=== PATIENT | male | born 1985 | race Caucasian/White ===

== ENCOUNTER 2021-10-08 21:33 | Emergency (ER) | payer BC ==
[2021-10-08] MEDS: cloNIDine 0.1 MG Tab PO ONE ×2 (21:56→23:43)
--- NOTE | 2021-10-08 22:23 | EDM.PDOC ---
ED HPI GENERAL MEDICAL PROBLEM - General Chief Complaint: General Stated Complaint: Nosebleed Time Seen by Provider: 10/08/21 21:40 Source of Information: Reports: Patient History Limitations: Reports: No Limitations - History of Present Illness INITIAL COMMENTS - FREE TEXT/NARRATIVE: 36 YO WM WITH PMH OF HYPERTENSION WHO PRESENTS TO ER WITH COMPLAINTS OF LEFT SIDED INTERMITTENT EPISTASIS WHICH BEGAN YESTERDAY. PT REPORTS IT WAS A MINOR BLEEDING BUT TONIGHT IT BECAME MORE SEVERE PROMPTING ER EVALUATION. UPON ARRIVAL, PATIENTS INITIAL BP- 189/134. PT DENIES HEADACHE OR CHEST PAIN AT THIS TIME. EPISTASIS WAS CONTROLLED AT TIME OF INTERVIEW. PT REPORTS HISTORY OF IGA NEPHROPATHY BUT MOST RECENT LAB WORK (WITHIN THE LAST MONTH) WAS WITHIN NORMAL RANGE. PT REPORTS HE HASN'T BEEN COMPLIANT WITH HIS BLOOD PRESSURE MEDICATION BUT TONIGHT HE TOOK HIS LISINOPRIL DUE TO ELEVATED BLOOD PRESSURE. Onset Date: 10/07/21 Duration: Day(s): (2) Location: Reports: Face (EPISTASIS ) Severity: Mild Improves with: Reports: None Worsens with: Reports: None Associated Symptoms: Reports: No Other Symptoms. Denies: Chest Pain, Headaches, Syncope, Weakness - Related Data Allergies Allergy/AdvReac Type Severity Reaction Status Date / Time No Known Drug Allergies Allergy Other Verified 10/08/21 21:36 Home Meds: Home Meds Lisinopril 10 mg PO DAILY 09/10/14 [History] Social & Family History - Living Situation & Occupation Living situation: Reports: Occupation: Employed ED ROS GENERAL - Review of Systems Review Of Systems: See Below Constitutional: Reports: No Symptoms HEENT: Reports: Nosebleed Respiratory: Reports: No Symptoms Cardiovascular: Reports: No Symptoms, Blood Pressure Problem. Denies: Chest Pain, Lightheadedness, Palpitations Endocrine: Reports: No Symptoms GI/Abdominal: Reports: No Symptoms : Reports: No Symptoms Musculoskeletal: Reports: No Symptoms Skin: Reports: No Symptoms Neurological: Reports: No Symptoms. Denies: Dizziness, Headache, Numbness, Paresthesia Psychiatric: Reports: No Symptoms Hematologic/Lymphatic: Reports: No Symptoms Immunologic: Reports: No Symptoms ED EXAM, GENERAL - Physical Exam Exam: See Below Exam Limited By: No Limitations General Appearance: Alert, WD/WN, No Apparent Distress Nose: Other (DRIED BLOOD IN LEFT NARE WITHOUT ACTIVE BLEEDING) Throat/Mouth: Normal Inspection, Normal Lips, Normal Teeth, Normal Gums, Normal Oropharynx, Normal Voice, No Airway Compromise Head: Atraumatic, Normocephalic Neck: Normal Inspection, Supple, Non-Tender, Full Range of Motion Respiratory/Chest: No Respiratory Distress, Lungs Clear, Normal Breath Sounds, No Accessory Muscle Use, Chest Non-Tender Cardiovascular: Normal Peripheral Pulses, Regular Rate, Rhythm, No Edema, No Gallop, No JVD, No Murmur, No Rub GI/Abdominal: Normal Bowel Sounds, Soft, Non-Tender, No Organomegaly, No Distention, No Abnormal Bruit, No Mass Back Exam: Normal Inspection, Full Range of Motion, NT Extremities: Normal Inspection, Normal Range of Motion, Non-Tender, Normal Capillary Refill, No Pedal Edema Neurological: Alert, Oriented, CN II-XII Intact, Normal Cognition, Normal Gait, No Motor/Sensory Deficits Psychiatric: Normal Affect, Normal Mood Skin Exam: Warm, Dry, Intact, Normal Color, No Rash Lymphatic: No Adenopathy Course - Vital Signs Last Recorded V/S: Last Vital Signs Temp 97.6 F 10/08/21 21:34 Pulse 84 10/08/21 21:34 Resp 20 10/08/21 21:34 BP 170/112 H 10/08/21 22:15 Pulse Ox 97 10/08/21 21:34 - Orders/Labs/Meds Orders: Active Orders 24 hr Category Date Time Status EKG Documentation Completion [RC] ASDIRECTED Care 10/08/21 22:30 Active EKG 12 Lead [EK] Stat Ther 10/08/21 22:29 Ordered Labs: Laboratory Tests 10/08/21 10/08/21 Range/Units 22:45 22:45 WBC 8.43 (5.00-10.00) 10^3/uL RBC 4.45 L (4.50-6.00) 10^6/uL Hgb 13.2 (13.0-17.0) g/dL Hct 39.6 L (40.0-52.0) % MCV 89.0 (82.0-92.0) fL MCH 29.7 (27.0-31.0) pg MCHC 33.3 (32.0-36.0) g/dL RDW 12.5 (11.5-14.5) % Plt Count 292 (150-400) 10^3/uL MPV 9.5 (7.4-10.4) fL Immature Gran % (Auto) 0.1 (0.0-5.0) % Neut % (Auto) 63.4 (50.0-70.0) % Lymph % (Auto) 22.5 (20.0-40.0) % [place] % (Auto) 10.9 H (2.0-8.0) % Eos % (Auto) 2.4 (1.0-3.0) % Baso % (Auto) 0.7 (0.0-1.0) % Neut # (Auto) 5.34 (2.50-7.00) 10^3/uL Lymph # (Auto) 1.90 (1.00-4.00) 10^3/uL [place] # (Auto) 0.92 H (0.10-0.80) 10^3/uL Eos # (Auto) 0.20 (0.10-0.30) 10^3/uL Baso # (Auto) 0.06 (0.00-0.10) 10^3/uL Immature Gran # (Auto) 0.01 (0.00-0.50) 10^3/uL Sodium 145 (136-145) mmol/L Potassium 3.3 L (3.5-5.1) mmol/L Chloride 107 (98-107) mmol/L Carbon Dioxide 28.9 (21.0-32.0) mmol/L Anion Gap 12.4 (5-15) mmol/L BUN 16 (7-18) mg/dL Creatinine 1.13 (0.51-1.17) mg/dL Est Cr Clr Drug Dosing 93.31 mL/min Estimated GFR (MDRD) > 60 mL/min Glucose 91 (70-140) mg/dL Calcium 8.3 L (8.7-10.3) mg/dL Meds: Medications Discontinued Medications Generic Name Dose Route Start Last Admin Trade Name Cecilia PRN Reason Stop Dose Admin Clonidine HCl 0.1 mg 10/08/21 21:53 10/08/21 21:56 Clonidine 0.1 Mg Tab PO 10/08/21 21:54 0.1 mg ONETIME ONE Administration Clonidine HCl Confirm 10/08/21 21:53 10/08/21 22:37 Clonidine 0.1 Mg Tab Administered 10/08/21 21:54 Not Given Dose 0.1 mg .ROUTE .STK-MED ONE - Re-Assessments/Exams Free Text/Narrative Re-Assessment/Exam: 10/08/21 23:28 EPISTASIS CONTROLLED WITH ICE PACK AND BETTER CONTROL OF HYPERTENSION 10/08/21 23:29 CURRENT BP- 156/108- PT DENIES CHEST PAIN/HEADACHE. INSTRUCTED PT TO TAKE BLOOD PRESSURE 2X/DAY Departure - Departure Time of Disposition: 23:31 Disposition: Home, Self-Care 01 Condition: Fair Clinical Impression: IgA nephropathy, Epistaxis Hypertension Qualifiers: Hypertension type: unspecified Qualified Code(s): I10 - Essential (primary) hypertension - Discharge Information Instructions: Nosebleed, Adult, Hypertension, Adult, [id number] Referrals: Arleth Herron MD [Primary Care Provider] - Forms: ED Department Discharge Additional Instructions: 1. DISCHARGE HOME 2. FOLLOW UP WITH DR PAK IN AM FOR FURTHER EVALUATION OF BLOOD PRESSURE 3. RETURN TO ER FOR CHEST PAIN, SHORTNESS OF BREATH, SEVERE HEADACHE OR UNCONTROLLED NOSEBLEED 4. CLONIDINE 0.1MG 2X/DAY 5. CHECK BLOOD PRESSURE DAILY AND/OR IF FEELING LIGHTHEADED Sepsis Event Note (ED) - Evaluation Sepsis Screening Result: No Definite Risk - Focused Exam Vital Signs: Vital Signs Temp Pulse Resp BP BP Pulse Ox 10/08/21 22:15 170/112 H 10/08/21 22:06 169/107 H 10/08/21 21:56 193/127 H 10/08/21 21:34 97.6 F 84 20 189/134 H 97 - My Orders Last 24 Hours: My Active Orders 10/08/21 22:29 EKG 12 Lead [EK] Stat 10/08/21 22:30 EKG Documentation Completion [RC] ASDIRECTED - Assessment/Plan Last 24 Hours: My Active Orders 10/08/21 22:29 EKG 12 Lead [EK] Stat 10/08/21 22:30 EKG Documentation Completion [RC] ASDIRECTED Assessment:: 1. ACCELERATED HYPERTENSION 2. EPISTASIS- CONTROLLED Plan: 1. DISCHARGE HOME 2. FOLLOW UP WITH DR PAK IN AM FOR FURTHER EVALUATION OF BLOOD PRESSURE 3. RETURN TO ER FOR CHEST PAIN, SHORTNESS OF BREATH, SEVERE HEADACHE OR UNCONTROLLED NOSEBLEED 4. CLONIDINE 0.1MG 2X/DAY 5. CHECK BLOOD PRESSURE DAILY OR IF FEELING LIGHTHEADED
[2021-10-08] MEDS: cloNIDine 0.1 MG Tab ONE (22:37)
[2021-10-08 23:07] LABS: ANION GAP 12.4 mmol/L (5-15); CHLORIDE,CL 107 mmol/L (98-107); SODIUM,NA 145 mmol/L (136-145)
[2021-10-08 23:44] VITALS: BP 156/112
[2021-10-08 23:46] VITALS: PULSE 72
== END 2021-10-08 23:45 | disposition home or self-care (01) ==
LOC: KA.ED 21:33
DX: R04.0 Epistaxis (principal); I10 Essential (primary) hypertension; N02.8 Recurrent and persistent hematuria with other morphologic changes; Z79.899 Other long term (current) drug therapy
CPT/HCPCS: 36415; 80048; 85025; 93005; 99283-25; A9270-GY

== ENCOUNTER 2021-10-11 08:14 | Emergency (ER) | payer BC ==
[2021-10-11 08:32] VITALS: PULSE 79
[2021-10-11] MEDS ORDERED: cloNIDine 0.1 MG Tab PO ONE (09:18)
[2021-10-11] MEDS ORDERED: Oxymetazoline 0.05% Nasal Spray 15 ML Bottle NAS ONE (09:18)
--- NOTE | 2021-10-11 09:24 | EDM.PDOC ---
ED HPI GENERAL MEDICAL PROBLEM - General Chief Complaint: Cardiovascular Problem Stated Complaint: HIGH BLOOD PRESSURE Time Seen by Provider: 10/11/21 09:00 Source of Information: Reports: Patient History Limitations: Reports: No Limitations - History of Present Illness INITIAL COMMENTS - FREE TEXT/NARRATIVE: 36 YO WM PRESENTS TO ER WITH EPISTASIS AND UNCONTROLLED HYPERTENSION. PT WAS SEEN IN ER FOR SIMILAR SYMPTOMS 10/08/21. PT WAS GIVEN CLONIDINE AT THAT TIME WHICH IMPROVED HIS BLOOD PRESSURE. PT WAS SEEN IN CLINIC THE FOLLOWING DAY AND HAD HIS LISINOPRIL INCREASED TO 20MG DAILY. PT REPORTS THIS AM, WHILE AT WORK HE DEVELOPED A NOSEBLEED. PT WAS SEEN BY [facility] NURSE AND WAS SENT HOME FOR ACCELERATED BLOOD PRESSURE. PT WENT TO CLINIC BUT WAS NOT SEEN, INSTEAD BEING SENT TO ER FOR FURTHER EVALUATION AND TREATMENT. CURRENT BP- 160/125. PT DENIES HEADACHE, OR CHEST PAIN. PT REPORTS LEFT SIDED EPISTASIS WHICH IS CONTROLLED WITH PRESSURE. Onset Date: 10/07/21 Duration: Day(s): (5) Location: Reports: Face, Generalized Severity: Mild Improves with: Reports: None Worsens with: Reports: None Associated Symptoms: Reports: No Other Symptoms. Denies: Chest Pain, Diaphoresis, Headaches, Shortness of Breath, Syncope - Related Data Allergies Allergy/AdvReac Type Severity Reaction Status Date / Time No Known Drug Allergies Allergy Other Verified 10/11/21 08:32 Home Meds: Home Meds Lisinopril 20 mg PO DAILY 09/10/14 [History] cloNIDine [Catapres] 0.1 mg PO DAILY PRN #10 tab 10/11/21 [Rx] Past Medical History HEENT History: Reports: Epistaxis Cardiovascular History: Reports: Hypertension Genitourinary History: Reports: Other (See Below) Other Genitourinary History: Kidney Disease Neurological History: Reports: Migraines - Infectious Disease History Infectious Disease History: Reports: None - Past Surgical History Head Surgeries/Procedures: Reports: None Musculoskeletal Surgical History: Reports: Arthroscopic Knee, Shoulder Surgery Social & Family History - Family History Family Medical History: No Pertinent Family History - Caffeine Use Caffeine Use: Reports: Coffee, Soda - Living Situation & Occupation Living situation: Reports: Occupation: Employed ED ROS GENERAL - Review of Systems Review Of Systems: See Below Constitutional: Reports: No Symptoms HEENT: Reports: No Symptoms Respiratory: Reports: No Symptoms Cardiovascular: Reports: Blood Pressure Problem. Denies: Chest Pain, Lightheadedness Endocrine: Reports: No Symptoms GI/Abdominal: Reports: No Symptoms : Reports: No Symptoms Musculoskeletal: Reports: No Symptoms Skin: Reports: No Symptoms Neurological: Reports: No Symptoms. Denies: Confusion, Dizziness, Headache, Trouble Speaking Psychiatric: Reports: No Symptoms Hematologic/Lymphatic: Reports: No Symptoms Immunologic: Reports: No Symptoms ED EXAM, GENERAL - Physical Exam Exam: See Below Exam Limited By: No Limitations General Appearance: Alert, WD/WN, No Apparent Distress Nose: Other (LEFT ANTERIOR EPISTAXSIS) Throat/Mouth: Normal Inspection, Normal Lips, Normal Teeth, Normal Gums, Normal Oropharynx, Normal Voice, No Airway Compromise Head: Atraumatic, Normocephalic Neck: Normal Inspection, Supple, Non-Tender, Full Range of Motion Respiratory/Chest: No Respiratory Distress, Lungs Clear, Normal Breath Sounds, No Accessory Muscle Use, Chest Non-Tender Cardiovascular: Normal Peripheral Pulses, Regular Rate, Rhythm, No Edema, No Gallop, No JVD, No Murmur, No Rub GI/Abdominal: Normal Bowel Sounds, Soft, Non-Tender, No Organomegaly, No Distention, No Abnormal Bruit, No Mass Back Exam: Normal Inspection, Full Range of Motion, NT Extremities: Normal Inspection, Normal Range of Motion, Non-Tender, Normal Capillary Refill, No Pedal Edema Neurological: Alert, Oriented, CN II-XII Intact, Normal Cognition, Normal Gait, No Motor/Sensory Deficits Psychiatric: Normal Affect, Normal Mood Skin Exam: Warm, Dry, Intact, Normal Color, No Rash Lymphatic: No Adenopathy Course - Vital Signs Last Recorded V/S: Last Vital Signs Temp 96.9 F 10/11/21 08:25 Pulse 79 10/11/21 08:25 Resp 20 10/11/21 08:25 BP 156/126 H 10/11/21 09:25 Pulse Ox 98 10/11/21 08:25 - Orders/Labs/Meds Meds: Medications Discontinued Medications Generic Name Dose Route Start Last Admin Trade Name Sixtoq PRN Reason Stop Dose Admin Clonidine HCl 0.1 mg 10/11/21 09:18 10/11/21 09:25 Clonidine 0.1 Mg Tab PO 10/11/21 09:19 0.1 mg ONETIME ONE Administration Oxymetazoline HCl 0.05 ml 10/11/21 09:18 10/11/21 09:26 Oxymetazoline 0.05% Nasal [place] 15 Ml Bottle EMMIE 10/11/21 09:19 1 spray ONETIME ONE Administration - Radiology Interpretation Free Text/Narrative:: 1. DISCHARGE HOME 2. LISINOPRIL 40MG DAILY 3. TAKE YOUR CLONIDINE 0.1MG FOR BLOOD PRESSURE OF SYSTOLIC (HIGHER NUMBER)OVER 200 OR DIASTOLIC (LOWER NUMBER) OVER 110 4. AFRIN NASAL SPRAY AND NOSE CLAMP FOR CONTINUED NOSEBLEEDING 5. RETURN TO ER FOR WORSENING SYMPTOMS 6. FOLLOW UP IN CLINIC NEEDED - Re-Assessments/Exams Free Text/Narrative Re-Assessment/Exam: 10/11/21 09:[address] PAK- RECOMMENDED INCREASING LISINOPRIL TO 40MG DAILY AND CLONIDINE 0.1MG PRN FOR SYSTOLIC BP>200 OR DIASTOLIC BP>110. Departure - Departure Time of Disposition: 11:05 Disposition: Home, Self-Care 01 Condition: Fair Clinical Impression: Epistaxis, Labile essential hypertension Prescriptions: cloNIDine [Catapres] 0.1 mg PO DAILY PRN #10 tab PRN Reason: Hypertension Instructions: Hypertension, Adult, [id number], Nosebleed, Adult Referrals: Arleth Herron MD [Primary Care Provider] - Forms: ED Department Discharge Additional Instructions: 1. DISCHARGE HOME 2. LISINOPRIL 40MG DAILY 3. TAKE YOUR CLONIDINE 0.1MG FOR BLOOD PRESSURE OF SYSTOLIC (HIGHER NUMBER)OVER 200 OR DIASTOLIC (LOWER NUMBER) OVER 110 4. AFRIN NASAL SPRAY AND NOSE CLAMP FOR CONTINUED NOSEBLEEDING 5. RETURN TO ER FOR WORSENING SYMPTOMS 6. FOLLOW UP IN CLINIC NEEDED Sepsis Event Note (ED) - Evaluation Sepsis Screening Result: No Definite Risk - Focused Exam Vital Signs: Vital Signs Temp Pulse Resp BP BP Pulse Ox 10/11/21 09:25 156/126 H 10/11/21 08:25 96.9 F 79 20 175/114 H 98 - Assessment/Plan Assessment:: 1. LABILE HYPERTENSION 2. EPISTASIS- LEFT NARES
[2021-10-11 09:28] VITALS: BP 156/126
== END 2021-10-11 11:27 | disposition home or self-care (01) ==
LOC: KA.ED 08:14
DX: R04.0 Epistaxis (principal); I10 Essential (primary) hypertension; Z79.899 Other long term (current) drug therapy
CPT/HCPCS: 99283; A9270

== ENCOUNTER 2023-01-16 21:30 | Emergency (ER) | payer BC, OTHER ==
[2023-01-16] MEDS: HYDROmorphone 1 MG/ML Syringe IVPUSH ONE (21:50)
[2023-01-16] MEDS: Sodium Chloride 0.9% 1,000 ML IV ONE (21:50)
[2023-01-16] MEDS: Ondansetron 4 MG/2 ML SDV IVPUSH ONE (21:55)
[2023-01-16 22:26] LABS: ANION GAP 14.2 mmol/L (5-15)
[2023-01-16] MEDS: Iopamidol 755 Mg/ML 75 ML Bottle IVPUSH ONE (22:30)
[2023-01-16] MEDS: Sodium Chloride 0.9% 50 ML IV SCH (22:42)
[2023-01-16 22:45] VITALS: PULSE 73
[2023-01-16] MEDS: Ketorolac 30 MG/ML SDV IVPUSH ONE (23:30)
[2023-01-16] MEDS: Acetaminophen/oxyCODONE 325-5 MG Tab PO ONE (23:38)
[2023-01-16] MEDS: Ketorolac 30 MG/ML SDV ONE (23:46)
[2023-01-16 23:57] VITALS: BP 131/88
== END 2023-01-16 23:40 | disposition home or self-care (01) ==
LOC: KA.ED 21:30
DX: R10.11 Right upper quadrant pain (principal); R11.10 Vomiting, unspecified; R19.7 Diarrhea, unspecified; I10 Essential (primary) hypertension; Z79.899 Other long term (current) drug therapy
CPT/HCPCS: 74177; 80053; 83690; 85025; 86140; 96361; 96374; 96375; 99284; 99284-25; J1170; J1885; J2405; J7030; Q9967